=== PATIENT | female | born 1980 | race Two or more races ===

== ENCOUNTER 2025-02-03 21:49 | Emergency (ER) | payer BC ==
[~2025-02-03] VITALS: Ht 162.6 cm; Wt 80.7 kg
[2025-02-03 23:02] LABS: APPEARANCE,URINE CLEAR (CLEAR); BLOOD, URINE 2+ Ery/uL (NEGATIVE); LEUKOCYTE ESTERASE ,URINE TRACE (NEGATIVE); NITRITE, URINE POSITIVE (NEGATIVE); UGLUCOSE TRACE mg/dL (NEGATIVE)
[2025-02-03 23:10] LABS: PREGNANCY TEST URINE QUAL NEGATIVE (NEGATIVE)
[2025-02-03 23:13] LABS: ADD URINE CULTURE YES; SQUAMOUS EPITHELIAL CELL,UR Few /HPF (None Seen)
[2025-02-03] MEDS: NAPROXEN 250 MG TABLET PO ONE (23:45)
[2025-02-03] MEDS ORDERED: CEPH-570 PO (23:50)
[2025-02-03] MEDS: CEPHALEXIN MONOHYDRATE 500 MG CAPSULE PO ONE (23:55)
[2025-02-03 23:57] VITALS: BP 144/84; TEMP 98.2; O2SAT 95
== END 2025-02-03 23:57 | disposition home or self-care (01) ==
LOC: ER 22:00
DX: N39.0 Urinary tract infection, site not specified (principal); R30.0 Dysuria; R10.9 Unspecified abdominal pain; J45.909 Unspecified asthma, uncomplicated
CPT/HCPCS: 81001; 84703-TC; 87086-TC